=== PATIENT | female | born 1960 | race Caucasian/White ===

== ENCOUNTER 2018-05-11 14:57 | Observation (INO) ==
[2018-05-11] MEDS ORDERED: Aspirin 325 MG Tablet PO ONE (15:31)
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
[2018-05-11 15:53] LABS: ABG Base Excess 0.5 mmol/L (-2-2); ABG PCO2 32 mmHg (38-42); ABG PO2 107 mmHg (61-120)
[2018-05-11 15:58] LABS: Baso # (Auto) 0.1 th/mm3 (0.0-0.2); Baso % (Auto) 0.6 % (0.0-2.0); Eos # (Auto) 0.1 th/mm3 (0.0-0.4); Eos % (Auto) 1.1 % (0.0-4.0); Hematocrit 43.3 % (35.0-46.0); Hemoglobin 15.1 gm/dL (11.6-15.3); Lymph # (Auto) 2.8 th/mm3 (1.0-4.8); Mean Corpuscular HGB Conc 34.8 % (32.0-36.0); Mean Corpuscular Hemoglobin 31.2 pg (27.0-34.0); Mean Corpuscular Volume 89.7 fL (80.0-100.0); Mean Platelet Volume 7.5 fL (7.0-11.0); Mono # (Auto) 0.5 th/mm3 (0.0-0.9); Mono % (Auto) 5.4 % (0.0-8.0); Neut # (Auto) 5.1 th/mm3 (1.8-7.7); Neut % (Auto) 59.9 % (16.0-70.0); Platelet Count 310 th/mm3 (150-450); Red Blood Count 4.82 mil/mm3 (4.00-5.30); Red Cell Distribution Width 12.6 % (11.6-17.2); White Blood Count 8.4 th/mm3 (4.0-11.0)
--- NOTE | 2018-05-11 16:07 | XR ---
EXAM DATE: 05/11/2018 4:00 PM EDT AGE/SEX: 57 years / Female INDICATIONS: Chest pain. CLINICAL DATA: This is the patient's initial encounter. Patient reports that signs and symptoms have been present for 2 days and indicates a pain score of 7/10. MEDICAL/SURGICAL HISTORY: None. None. COMPARISON: No prior exams available for comparison. FINDINGS: The lungs are clear without infiltrate, nodule, or mass. There is no appreciable pleural effusion for technique. Heart and mediastinum are unremarkable. CONCLUSION: No acute cardiopulmonary disease. Electronically signed by: Anirudh Wright MD 05/11/2018 4:06 PM EDT
[2018-05-11 16:17] LABS: Activated Partial Thrombo Time 24.7 sec (24.3-30.1); Prothrombin Time 10.1 sec (9.8-11.6)
[2018-05-11 16:23] LABS: Alkaline Phosphatase 63 U/L (45-117); D-Dimer 0.46 mg/L FEU (0.00-0.50); Total Protein 8.2 g/dL (6.4-8.2)
[2018-05-11 16:28] LABS: Alanine Aminotransferase 31 U/L (10-53); Albumin 4.1 g/dL (3.4-5.0); Anion Gap 10 meq/L (5-15); Aspartate Aminotransferase 21 U/L (15-37); Blood Urea Nitrogen 11 mg/dL (7-18); Calcium 9.2 mg/dL (8.5-10.1); Chloride 102 meq/L (98-107); Glomerular Filtration Rate 58 mL/min (>89); Glucose,Random 118 mg/dL (74-106); Lipase 130 U/L (73-393); Potassium 3.6 meq/L (3.5-5.1); Sodium 139 meq/L (136-145)
[2018-05-11 17:10] LABS: Magnesium 1.8 mg/dL (1.5-2.5)
[2018-05-11 17:13] LABS: Creatine Kinase 353 U/L (26-192)
[2018-05-11 17:19] LABS: Thyroid Stimulating Hormone 0.474 uIU/mL (0.358-3.740)
[2018-05-11 17:35] LABS: CKMB Percent 0.4 % (0.0-4.0); Creatine Kinase MB 1.3 ng/mL (0.5-3.6)
[2018-05-11 20:08] LABS: Creatine Kinase 55 U/L (26-192)
--- NOTE | 2018-05-11 21:33 | ECG ---
Date Performed: 05/11/2018 Time Performed: 15:19:30 PTAGE: 57 years EKG: Sinus rhythm POSSIBLE LEFT ATRIAL ENLARGEMENT INCOMPLETE RIGHT BUNDLE BRANCH BLOCK BORDERLINE ECG INTERPRETATION BASED ON A DEFAULT AGE OF 89 YEARS NO PREVIOUS TRACING DOCTOR: Pawel Camarillo Interpretating Date/Time 05/11/2018 21:31:53
--- NOTE | 2018-05-11 21:48 | ECG ---
Date Performed: 05/11/2018 Time Performed: 18:57:11 PTAGE: 57 years EKG: Sinus rhythm POSSIBLE LEFT ATRIAL ENLARGEMENT LOW QRS VOLTAGE IN PRECORDIAL LEADS INCOMPLETE RIGHT BUNDLE BRANCH BLOCK BORDERLINE ECG PREVIOUS TRACING : 05/11/2018 15.19 No significant change from previous tracing noted. DOCTOR: Pawel Camarillo Interpretating Date/Time 05/11/2018 21:46:18
[2018-05-11] MEDS ORDERED: Morphine Inj 4 MG/ML Vial IV.PUSH PRN (22:17)
[2018-05-12] MEDS ORDERED: ALPRAZolam 0.5 MG Tablet PO PRN
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
--- NOTE | 2018-05-12 08:38 | ECG ---
Date Performed: 05/11/2018 Time Performed: 21:35:24 PTAGE: 57 years EKG: Sinus rhythm POSSIBLE LEFT ATRIAL ENLARGEMENT BORDERLINE LEFT AXIS DEVIATION LOW QRS VOLTAGE IN PRECORDIAL LEADS INCOMPLETE RIGHT BUNDLE BRANCH BLOCK BORDERLINE ECG Since PREVIOUS TRACING , no significant change noted PREVIOUS TRACIN05/11/2018 18.57 DOCTOR: Ilene Pompa Interpretating Date/Time 05/12/2018 08:37:13
[2018-05-12] MEDS ORDERED: Levothyroxine 100 MCG Tablet PO SCH (10:00)
--- NOTE | 2018-05-12 16:50 | TR ---
Date Performed: 05/12/2018 Time Performed: 10:05:42 DOCTOR: Ilene Pompa DRUG LIST: CLINICAL HISTORY: REASON FOR TEST: REASON FOR ENDING: OBSERVATION: CONCLUSION: Aníbal protocol completed. Stopped sec to exceeding target heart rate and leg fatigue . Maximum QQ=087 Max HR Achieved=91.0% Maximum WZ=423/2 Total Exercise Time=6:01. No reprod chest dis comfort. Fair exercise tolerance. No ectopy. Intermittent artifact V2-V3. Upsloping st segments. Norm al bp response. Recovery quick and unremarkable. COMMENTS: no ischemia
== END 2018-05-12 11:37 | disposition home or self-care (01) ==
LOC: NEPC 14:57 → NEDA 14:57 → NEPHCDU 18:12
PROVIDERS: ADMIT Internal Medicine Cardiovascular Disease; ATTEND Internal Medicine Cardiovascular Disease
DX: Z86.39 Personal history of other endocrine, nutritional and metabolic disease; R73.03 Prediabetes; Z82.49 Family history of ischemic heart disease and other diseases of the circulatory system; R07.89 Other chest pain; Z82.5 Family history of asthma and other chronic lower respiratory diseases; R94.31 Abnormal electrocardiogram [ECG] [EKG]; Z80.0 Family history of malignant neoplasm of digestive organs